=== PATIENT | male | born 1955 | race Caucasian/White ===

== ENCOUNTER 2024-05-20 20:41 | Emergency (ER) | payer MEDICARE, OTHER ==
[2024-05-20 21:02] LABS: Glucose,Whole Blood 112 mg/dL (70-110)
[2024-05-20] MEDS: SODIUM CHLORIDE 0.9% 1,000 ML IV ONE (22:00)
[2024-05-20 22:03] LABS: Basophils # (A) 0.1 k/uL (0-0.2); Basophils % (A) 1 %; Eosinophils # (A) 0.2 k/uL (0-0.7); Eosinophils % (A) 1 %; HGB 17.7 gm/dL (13.0-17.5); Lymphocytes # (A) 1.1 k/uL (1.0-4.8); Lymphocytes % (A) 9 %; MCH 31.9 pg (25.0-35.0); MCHC 31.9 g/dL (31.0-37.0); MCV 99.9 fL (80.0-100.0); Mean Platelet Volume 8.5; Monocytes # (A) 0.8 k/uL (0-1.0); Monocytes % (A) 6 %; Neutrophils # (A) 10.2 k/uL (1.3-7.7); Neutrophils % (A) 81 %; Platelet Count 201 k/uL (150-450); RBC 5.55 m/uL (4.30-5.90); RDW 12.9 % (11.5-15.5); WBC 12.6 k/uL (3.8-10.6)
--- NOTE | 2024-05-20 22:03 | ED ---
General Adult HPI - General Chief complaint: Fall Stated complaint: Fall Time Seen by Provider: 05/20/24 21:20 Source: patient, EMS, RN notes reviewed, old records reviewed Mode of arrival: EMS Limitations: no limitations - History of Present Illness Initial comments: Patient is a 68-year-old male who presents emergency department after a fall at his assisted living facility. Has a history of CABG and diabetes. Patient is on insulin. Patient was found diaphoretic at the scene and hypoglycemic with blood sugar level of 37. Received 1 amp of D50 which returned blood sugar to 177. Was altered initially but once given the amp of D50, return to ANO x 4. Believes it was mechanical fall. Only complaint is some mild upper lumbar inferior thoracic spine tenderness to palpation. Unknown LOC as the patient was confused to the hypoglycemia. Is not on blood thinners. Denies any chest pain or shortness of breath. Denies any abdominal pain, nausea, vomiting. Denies any extremity pain. Presents for further evaluation at this time. - Related Data Allergies Allergy/AdvReac Type Severity Reaction Status Date / Time No Known Allergies Allergy Verified 05/20/24 21:33 Review of Systems ROS Statement: Those systems with pertinent positive or pertinent negative responses have been documented in the HPI. Review of Systems: CONST: Denies fever EYES: Denies blurry vision ENT: Denies nasal congestion C/V: Denies Chest pain RESP: Denies shortness of breath GI: Denies abdominal pain : Denies dysuria SKIN: Denies rash. MSK: Endorses back pain NEURO: Denies headache ROS Other: All systems not noted in ROS Statement are negative. Past Medical History Past Medical History: CVA/TIA, Diabetes Mellitus, Hypertension Additional Past Surgical History / Comment(s): quadruple bypass Smoking Status: Current every day smoker Past Alcohol Use History: None Reported Past Drug Use History: None Reported General Exam - General Exam Comments Initial Comments: General: Appears in no acute distress. HEAD: Normal with no signs of head trauma. Negative Alvarez sign, negative r accoon eyes. EYES: PERRLA, EOMI, conjunctiva normal, no discharge. Pupils are 3 mm and equal bilaterally. ENT: Hearing grossly intact, normal oropharynx. Cervical collar in place RESPIRATORY: Clear breath sounds bilaterally. No wheezes, rales, or rhonchi. C/V: Regular rate and rhythm. S1 and S2 auscultated, no edema, peripheral pulses 2+ and intact throughout ABD: Abd is soft, nontender, nondistended EXT: Normal range of motion, no obvious deformity. Pelvis is stable. Mild tenderness to palpation of the mid spine, lower thoracic and lumbar. Seems to be mostly in the paraspinal muscles. No step-offs or deformities appreciated. No extremity tenderness to palpation. No pelvic tenderness to palpation. SKIN: No rashes or lesions observed on exposed skin. NEURO: Alert and oriented x 4. Cranial nerves II-XII intact. No focal sensory or strength deficits. GCS of 15. Limitations: no limitations Course Vital Signs 05/20/24 05/20/24 05/20/24 20:52 20:58 22:00 Temperature Pulse Rate 53 L 44 L 57 L Respiratory 18 21 16 Rate Blood Pressure 223/93 172/121 219/94 O2 Sat by Pulse 96 99 99 Oximetry 05/20/24 05/20/24 05/20/24 22:30 23:00 23:15 Temperature Pulse Rate 47 L 53 L 60 Respiratory 15 15 24 Rate Blood Pressure 213/95 205/95 176/86 O2 Sat by Pulse 95 95 94 L Oximetry 05/20/24 05/20/24 05/21/24 23:30 23:52 02:14 Temperature 98.0 F Pulse Rate 51 L 70 54 L Respiratory 13 16 14 Rate Blood Pressure 156/78 146/99 162/80 O2 Sat by Pulse 95 94 L 94 L Oximetry Medical Decision Making - Medical Decision Making Was pt. sent in by a medical professional or institution (, PA, DIRECTOR FURNITURE, urgent care, hospital, or fdc...) When possible be specific @ -Sent from assisted living for fall and confusion secondary to hypoglycemia Did you speak to anyone other than the patient for history (EMS, parent, family, police, friend...)? What history was obtained from this source @ -No Did you review nursing and triage notes (agree or disagree)? Why? @ -I reviewed and agree with nursing and triage notes Were old charts reviewed (outside hosp., previous admission, EMS record, old EKG, old radiological studies, urgent care reports/EKG's, fdc records)? Report findings @ -No old charts were reviewed Differential Diagnosis (chest pain, altered mental status, abdominal pain women, abdominal pain men, vaginal bleeding, weakness, fever, dyspnea, syncope, headache, dizziness, GI bleed, back pain, seizure, CVA, palpatations, mental health, musculoskeletal)? @ -Differential Musculoskeletal Muscular strain, contusion, ligament sprain, fracture, arthritis, septic arthritis, bursitis, cellulitis, muscle spasm, nerve compression, DVT, arterial occlusion, herpes zoster, electrolyte abnormality, tumor.... This is not meant to be in all inclusive list. Also includes intracranial injury, spinal injury. EKG interpreted by me (3pts min.). @ -As above X-rays interpreted by me (1pt min.). @ -Chest x-ray reveals no obvious acute cardiopulmonary process. CT interpreted by me (1pt min.). @ -CT brain, C-spine negative for any obvious acute intracranial process or traumatic injury.CT thoracic and lumbar spine negative for any obvious acute traumatic injury. U/S interpreted by me (1pt. min.). @ -None done What testing was considered but not performed or refused? (CT, X-rays, U/S, labs)? Why? @ -None What meds were considered but not given or refused? Why? @ -None Did you discuss the management of the patient with other professionals (professionals i.e. , PA, DIRECTOR FURNITURE, lab, RT, psych nurse, social worker school, card puncher, teacher, correctional officer sergeant, b2b sales manager)? Give summary @ -No Was smoking cessation discussed for >3mins.? @ -No Was critical care preformed (if so, how long)? @ -No Were there social determinants of health that impacted care today? How? (Homelessness, low income, unemployed, alcoholism, drug addiction, transportation, low edu. Level, literacy, decrease access to med. care, fpc, rehab)? @ -No Was there de-escalation of care discussed even if they declined (Discuss DNR or withdrawal of care, Hospice)? DNR status @ -No What co-morbidities impacted this encounter? (DM, HTN, Smoking, COPD, CAD, Cancer, CVA, ARF, Chemo, Hep., AIDS, mental health diagnosis, sleep apnea, morbid obesity)? @ -None Was patient admitted / discharged? Hospital course, mention meds given and route, prescriptions, significant lab abnormalities, going to OR and other pertinent info. @ -Based on the patient's presentation and physical exam, patient presents emergency department after a fall and a episode of confusion following the fall. Patient was found to be hypoglycemic. Patient does not recall the fall and this likely secondary to hypoglycemia. He is on insulin. Vital signs are currently within acceptable limits. Patient was already given D50 and blood sugar did improve. He is only complaining of mid back pain. We will obtain CT imaging, chest x-ray, as well as basic labs. We will closely monitor his blood sugars here in the department. Patient was in agreement this plan. EKG shows no signs of acute ischemia.Imaging negative for any obvious traumatic injury. Laboratory studies unremarkable. Patient's blood sugar remained stable throughout his stay. Blood pressure improved after hydralazine. Patient is asymptomatic at this time. He was observed for multiple hours here in the department. He will be discharged home at this time. Patient was in agreement this plan. I instructed the patient to follow up with their PCP in the next 1-3 days. I explained that the patient should return to the emergency department if they experience any worsening symptoms. Strict return precautions were discussed with the patient. The patient expressed understanding of these instructions. I answered all questions that the patient had. The patient was discharged home in good condition with their prescriptions and follow up information. Undiagnosed new problem with uncertain prognosis? @ -No Drug Therapy requiring intensive monitoring for toxicity (Heparin, Nitro, Insulin, Cardizem)? @ -No Were any procedures done? @ -No Diagnosis/symptom? @ -Hypoglycemia, fall, muscle strain, Acute, or Chronic, or Acute on Chronic? @ -Acute Uncomplicated (without systemic symptoms) or Complicated (systemic symptoms)? @ -Uncomplicated Side effects of treatment? @ -None Exacerbation, Progression, or Severe Exacerbation] @ -No Poses a threat to life or bodily function? @ -Unlikely - Lab Data Result diagrams: 05/20/24 21:31 05/20/24 21:31 Lab Results 05/20/24 05/20/24 05/20/24 Range/Units 20:49 21:30 21:31 WBC 12.6 H (3.8-10.6) k/uL RBC 5.55 (4.30-5.90) m/uL Hgb 17.7 H (13.0-17.5) gm/dL Hct 55.4 H (39.0-53.0) % MCV 99.9 (80.0-100.0) fL MCH 31.9 (25.0-35.0) pg MCHC 31.9 (31.0-37.0) g/dL RDW 12.9 (11.5-15.5) % Plt Count 201 (150-450) k/uL MPV 8.5 Neutrophils % 81 % Lymphocytes % 9 % Monocytes % 6 % Eosinophils % 1 % Basophils % 1 % Neutrophils # 10.2 H (1.3-7.7) k/uL Lymphocytes # 1.1 (1.0-4.8) k/uL Monocytes # 0.8 (0-1.0) k/uL Eosinophils # 0.2 (0-0.7) k/uL Basophils # 0.1 (0-0.2) k/uL PT (10.0-12.5) sec INR (<1.2) APTT (22.0-30.0) sec Sodium (137-145) mmol/L Potassium (3.5-5.1) mmol/L Chloride (98-107) mmol/L Carbon Dioxide (22-30) mmol/L Anion Gap mmol/L BUN (9-20) mg/dL Creatinine (0.66-1.25) mg/dL Est GFR (CKD-EPI)AfAm (>60 ml/min/1.73 sqM) Est GFR (CKD-EPI)NonAf (>60 ml/min/1.73 sqM) Glucose (74-99) mg/dL POC Glucose (mg/dL) 112 H (70-110) mg/dL POC Glu Brake Assembler ID Foy, Shelia Calcium (8.4-10.2) mg/dL Total Bilirubin (0.2-1.3) mg/dL AST (17-59) U/L ALT (4-49) U/L Alkaline Phosphatase (38-126) U/L Total Protein (6.3-8.2) g/dL Albumin (3.5-5.0) g/dL Urine Color Colorless Urine Appearance Clear (Clear) Urine pH 6.5 (5.0-8.0) Ur Specific [place] 1.011 (1.001-1.035) Urine Protein 2+ H (Negative) Urine Glucose (UA) Trace H (Negative) Urine Ketones Negative (Negative) Urine Blood Negative (Negative) Urine Nitrite Negative (Negative) Urine Bilirubin Negative (Negative) Urine Urobilinogen <2.0 (<2.0) mg/dL Ur Leukocyte Esterase Negative (Negative) Urine RBC 1 (0-5) /hpf Urine WBC <1 (0-5) /hpf 05/20/24 05/20/24 05/20/24 Range/Units 21:31 21:31 22:04 WBC (3.8-10.6) k/uL RBC (4.30-5.90) m/uL Hgb (13.0-17.5) gm/dL Hct (39.0-53.0) % MCV (80.0-100.0) fL MCH (25.0-35.0) pg MCHC (31.0-37.0) g/dL RDW (11.5-15.5) % Plt Count (150-450) k/uL MPV Neutrophils % % Lymphocytes % % Monocytes % % Eosinophils % % Basophils % % Neutrophils # (1.3-7.7) k/uL Lymphocytes # (1.0-4.8) k/uL Monocytes # (0-1.0) k/uL Eosinophils # (0-0.7) k/uL Basophils # (0-0.2) k/uL PT 10.6 (10.0-12.5) sec INR 1.0 (<1.2) APTT 24.4 (22.0-30.0) sec Sodium 137 (137-145) mmol/L Potassium 3.8 (3.5-5.1) mmol/L Chloride 98 (98-107) mmol/L Carbon Dioxide 31 H (22-30) mmol/L Anion Gap 8 mmol/L BUN 28 H (9-20) mg/dL Creatinine 1.32 H (0.66-1.25) mg/dL Est GFR (CKD-EPI)AfAm 64 (>60 ml/min/1.73 sqM) Est GFR (CKD-EPI)NonAf 55 (>60 ml/min/1.73 sqM) Glucose 91 (74-99) mg/dL POC Glucose (mg/dL) 72 (70-110) mg/dL POC Glu Brake Assembler ID Yovanny, Andree Calcium 10.4 H (8.4-10.2) mg/dL Total Bilirubin 0.5 (0.2-1.3) mg/dL AST 42 (17-59) U/L ALT 22 (4-49) U/L Alkaline Phosphatase 67 (38-126) U/L Total Protein 7.5 (6.3-8.2) g/dL Albumin 4.9 (3.5-5.0) g/dL Urine Color Urine Appearance (Clear) Urine pH (5.0-8.0) Ur Specific [place] (1.001-1.035) Urine Protein (Negative) Urine Glucose (UA) (Negative) Urine Ketones (Negative) Urine Blood (Negative) Urine Nitrite (Negative) Urine Bilirubin (Negative) Urine Urobilinogen (<2.0) mg/dL Ur Leukocyte Esterase (Negative) Urine RBC (0-5) /hpf Urine WBC (0-5) /hpf 05/20/24 05/21/24 Range/Units 23:27 01:40 WBC (3.8-10.6) k/uL RBC (4.30-5.90) m/uL Hgb (13.0-17.5) gm/dL Hct (39.0-53.0) % MCV (80.0-100.0) fL MCH (25.0-35.0) pg MCHC (31.0-37.0) g/dL RDW (11.5-15.5) % Plt Count (150-450) k/uL MPV Neutrophils % % Lymphocytes % % Monocytes % % Eosinophils % % Basophils % % Neutrophils # (1.3-7.7) k/uL Lymphocytes # (1.0-4.8) k/uL Monocytes # (0-1.0) k/uL Eosinophils # (0-0.7) k/uL Basophils # (0-0.2) k/uL PT (10.0-12.5) sec INR (<1.2) APTT (22.0-30.0) sec Sodium (137-145) mmol/L Potassium (3.5-5.1) mmol/L Chloride (98-107) mmol/L Carbon Dioxide (22-30) mmol/L Anion Gap mmol/L BUN (9-20) mg/dL Creatinine (0.66-1.25) mg/dL Est GFR (CKD-EPI)AfAm (>60 ml/min/1.73 sqM) Est GFR (CKD-EPI)NonAf (>60 ml/min/1.73 sqM) Glucose (74-99) mg/dL POC Glucose (mg/dL) 180 H 231 H (70-110) mg/dL POC Glu Brake Assembler ID Shelia Foy Riva Calcium (8.4-10.2) mg/dL Total Bilirubin (0.2-1.3) mg/dL AST (17-59) U/L ALT (4-49) U/L Alkaline Phosphatase (38-126) U/L Total Protein (6.3-8.2) g/dL Albumin (3.5-5.0) g/dL Urine Color Urine Appearance (Clear) Urine pH (5.0-8.0) Ur Specific [place] (1.001-1.035) Urine Protein (Negative) Urine Glucose (UA) (Negative) Urine Ketones (Negative) Urine Blood (Negative) Urine Nitrite (Negative) Urine Bilirubin (Negative) Urine Urobilinogen (<2.0) mg/dL Ur Leukocyte Esterase (Negative) Urine RBC (0-5) /hpf Urine WBC (0-5) /hpf - EKG Data -: EKG Interpreted by Me EKG Comments: 12-lead Electrocardiogram Interpretation Note EKG was reviewed and interpreted by myself. 12-lead ECG performed at 2111 is interpreted by me as revealing bradycardia at a rate of 43 beats per minute. Left axis deviation. IN interval is 200 ms, QRS duration of 129 ms, QTc is 410 ms.. There were no ST or T wave abnormalities to suggest myocardial ischemia or injury. R wave progression across the precordium was satisfactory. By my inter pretation this EKG is non-diagnostic for acute ischemia. Disposition Clinical Impression: Fall, Muscle strain, Hypoglycemia, Hypertension Disposition: HOME SELF-CARE Condition: Good Instructions (If sedation given, give patient instructions): Fall Prevention for Older Adults (ED) Is patient prescribed a controlled substance at d/c from ED?: No Referrals: Juan Manuel León MD [Primary Care Provider] - 1-2 days Time of Disposition: 01:18
[2024-05-20 22:07] LABS: Glucose,Whole Blood 72 mg/dL (70-110)
--- NOTE | 2024-05-20 22:07 | XR ---
EXAMINATION TYPE: XR chest 1V portable DATE OF EXAM: 05/20/2024 Comparison: None Clinical History: 68-year-old male with pain after fall Findings: Median sternotomy wires with postoperative clips in the mediastinum. There is patchy left basilar opa [place] and blunted costophrenic angle. Impression: Post-CABG changes. There is a trace left pleural effusion with adjacent atelectasis and/or consolidat ion.
[2024-05-20 22:11] LABS: HCT 55.4 % (39.0-53.0)
[2024-05-20 22:14] LABS: ALT 22 U/L (4-49); AST 42 U/L (17-59); African American GFR (CKD) 64 (>60 ml/min/1.73 sqM); Albumin 4.9 g/dL (3.5-5.0); Alkaline Phosphatase 67 U/L (38-126); Anion Gap 8 mmol/L; Blood Urea Nitrogen 28 mg/dL (9-20); Calcium 10.4 mg/dL (8.4-10.2); Carbon Dioxide 31 mmol/L (22-30); Chloride 98 mmol/L (98-107); Glucose 91 mg/dL (74-99); Non-African American GFR(CKD) 55 (>60 ml/min/1.73 sqM); Potassium 3.8 mmol/L (3.5-5.1); Sodium 137 mmol/L (137-145); Total Bilirubin 0.5 mg/dL (0.2-1.3); Total Protein 7.5 g/dL (6.3-8.2)
[2024-05-20 22:15] LABS: Appearance,Urine Clear (Clear); Bilirubin,Urine Negative (Negative); Blood,Urine Negative (Negative); Color,Urine Colorless; Glucose,Urine (UA) Trace (Negative); Ketones,Urine Negative (Negative); Leukocyte Esterase,Urine Negative (Negative); Nitrite,Urine Negative (Negative); PH, Urine 6.5 (5.0-8.0); Protein,Urine 2+ (Negative); RBC,Urine 1 /hpf (0-5); Specific Gravity,Urine 1.011 (1.001-1.035); Urobilinogen,Urine <2.0 mg/dL (<2.0); WBC,Urine <1 /hpf (0-5)
[2024-05-20 22:15] LABS: Partial Thromboplastin Time 24.4 sec (22.0-30.0); Prothrombin Time 10.6 sec (10.0-12.5)
--- NOTE | 2024-05-20 22:17 | CT ---
EXAMINATION TYPE: CT brain keaar betancourt con DATE OF EXAM: 05/20/2024 COMPARISON: None HISTORY: 68-year-old male Fall, hit head, no LOC, no Blood thinners. CT DLP: Combined DLP of 3817.4 mGycm Automated exposure control for dose reduction was used. Technique: Examination of the head was done in axial plane without intravenous contrast. Coronal and sagittal reconstructions performed. CT of the cervical spine was obtained in axial plane without intravenous injection of contrast mater ial. Coronal and sagittal reformatted images were obtained from the axial views for evaluation of f ractures, spinal alignment and canal. FINDINGS: Head: There is no evidence of acute intracranial hemorrhage, acute ischemic changes, mass, mass-effect, or extra-axial fluid collection. There is no effacement of cerebral sulci or basal subarachnoid cister ns. There is no hydrocephalus. There is no midline shift. Belle-white matter distinction is preserv ed. Moderate volume loss overlying the bilateral cerebral convexities. Encephalomalacia suggesting old co rtical infarcts in the posterior frontal lobes on both sides as well as the left parietal lobe. Aphth ous chronic calcifications in the carotid siphons. Slight rightward nasal septal deviation. Mild mucosal thickening ethmoid air cells. Mildly depressed fracture of the right nasal bone is age indeterminate. Cerumen right external auditory canal. Mastoid air cells are well pneumatized. Orbits and globes are intact. Cervical spine: No craniocervical junction abnormality, predental space widening, or prevertebral soft tissue swellin g. Mild degenerative change C1 dens articulation. Moderate to severe disc/endplate degenerative changes especially C4-T1 levels. Disc osteophyte comple xes contribute to variable moderate spinal canal stenosis throughout, greatest degree of narrowing at C5-C6 with AP canal dimension narrowed to 6 mm. No acute fracture seen. Degenerative grade 1 retrolisthesis C3-C4, C4-C5. Remaining alignment is maintained. Variable moderate neuroforaminal stenosis throughout. Sagittal and coronal reformatted images confirm above findings. COMBINED IMPRESSION: 1. Moderate cerebral atrophy. Areas of cortical encephalomalacia (posterior frontal lobes on both or[place] es and left parietal cortex) suggesting old vascular insults. Clinically correlate. No acute intracra nial abnormality seen. 2. Moderate to advanced multilevel spondylotic change. Variable moderate spinal canal and neuroforami nal stenoses at multiple levels. Degenerative grade 1 retrolisthesis C3-C4 and C4-C5. No acute fractu re seen.
[2024-05-20] MEDS: DEXTROSE 50% SYRINGE 50 ML IVP STA (22:34)
[2024-05-20] MEDS: hydrALAZINE HCL 20 MG/ML 1 ML VIAL IVP STA ×2 (22:35→23:20)
[2024-05-20] MEDS: ACETAMINOPHEN TAB 325 MG TAB PO STA (22:44)
[2024-05-20 23:29] LABS: Glucose,Whole Blood 180 mg/dL (70-110)
--- NOTE | 2024-05-21 01:12 | CT ---
EXAM: CT Thoracic Spine Without Intravenous Contrast CLINICAL HISTORY: Fall TECHNIQUE: Axial computed tomography images of the thoracic spine without intravenous contrast. CTDI is 17.5 mGy and DLP is 1053.5 mGy-cm. This CT exam was performed using one or more of the following dose reduction techniques: automated exposure control, adjustment of the mA and/or kV according to patient size, and/or use of iterative reconstruction technique. COMPARISON: No relevant prior studies available. FINDINGS: Vertebrae: The thoracic vertebral bodies are intact without acute traumatic injury. No anterolisthesis or retrolisthesis is noted. The pedicles, facet joints, spinous processes and transverse processes are intact. Discs/spinal canal/neural foramina: No acute findings. Multilevel degenerative changes with marginal hypertrophic osteophytes noted anteriorly and posteriorly. No significant osseous spinal canal stenosis. Other bones/joints: The posterior medial ribs are unremarkable. Soft tissues: No significant acute traumatic paraspinal soft tissue abnormality identified. IMPRESSION: No acute osseous traumatic injury or significant abnormal alignment involving the thoracic spine. EXAM: CT Lumbar Spine Without Intravenous Contrast CLINICAL HISTORY: Fall TECHNIQUE: Axial computed tomography images of the lumbar spine without intravenous contrast. CTDI is 17.5 mGy and DLP is 1053.5 mGy-cm. This CT exam was performed using one or more of the following dose reduction techniques: automated exposure control, adjustment of the mA and/or kV according to patient size, and/or use of iterative reconstruction technique. COMPARISON: No relevant prior studies available. FINDINGS: Vertebrae: The lumbar vertebral bodies are intact without acute traumatic injury. No anterolisthesis or retrolisthesis is noted. The pedicles, facet joints, spinous processes and transverse processes are intact. Facet hypertrophic changes noted at L4-L5 and L5-S1. Discs/spinal canal/neural foramina: Multilevel disc space narrowing with marginal hypertrophic osteophyte changes, most prominent at L4-L5 and L5-S1, resulting in chronic osseous encroachment on the central canal. Soft tissues: No significant acute traumatic paraspinal soft tissue abnormality identified. Vasculature: Ectasia of the heavily calcified infrarenal aorta without definite acute periaortic abnormality identified. Bladder: Prominent bladder distention only partially included. Detailed evaluation limited. IMPRESSION: No acute osseous traumatic injury or significant abnormal alignment involving the lumbar spine.
[2024-05-21 01:42] LABS: Glucose,Whole Blood 231 mg/dL (70-110)
[2024-05-21 02:28] VITALS: BP 162/80; PULSE 54; RESP 14; TEMP 98
== END 2024-05-21 02:14 | disposition home or self-care (01) ==
LOC: EC 20:41
DX: S29.012A Strain of muscle and tendon of back wall of thorax, initial encounter (principal); S39.012A Strain of muscle, fascia and tendon of lower back, initial encounter; E11.649 Type 2 diabetes mellitus with hypoglycemia without coma; I10 Essential (primary) hypertension; R00.1 Bradycardia, unspecified; F17.200 Nicotine dependence, unspecified, uncomplicated; Z79.4 Long term (current) use of insulin; Z86.73 Personal history of transient ischemic attack (TIA), and cerebral infarction without residual deficits; W19.XXXA Unspecified fall, initial encounter
CPT/HCPCS: 99285; 96374; 96375; 96376; 96361; 36415; 80053; 85025; 85610; 85730; 81001; 71045; 72128; 72125; 72131; 70450; J0360